=== PATIENT | female | born 1975 | race Two or more races ===

== ENCOUNTER 2018-12-30 20:35 | Emergency (ER) | payer SELFPAY ==
[~2018-12-30] VITALS: Ht 152.4 cm; Wt 59.0 kg
--- NOTE | 2018-12-30 20:48 | PHYS DOC ---
Adult General Chief Complaint Chief Complaint: ABDOMINAL PAIN HPI HPI Patient is a 43 year old [female] who presents with [right lower quadrant abdominal pain. Patient reports she has had this pain as an aching for the last week, reports over the last 8 has gotten worse. Reports pain has seemed to go into her back. Patient states the pain started. Medical: Has moved more to right lower quadrant. Does report she has had a fever today. States she has had decreased appetite the last few days as well. Does report she is have a bit of discomfort while urinating, denies any vaginal discharge, denies any vaginal bleeding. States she has been a little nauseous, however denies any nausea today. Denies any vomiting. Denies any diarrhea. Last bowel movement yesterday. Denies any abnormal bowel changes] Review of Systems Review of Systems Constitutional: Reports fever denies chills [] Eyes: Denies change in visual acuity, redness, or eye pain [] HENT: Denies nasal congestion or sore throat [] Respiratory: Denies cough or shortness of breath [] Cardiovascular: No additional information not addressed in HPI [] GI: Reports abdominal pain, nausea, denies vomiting, bloody stools or diarrhea [] : Reports painful urination the past day [] Musculoskeletal: Denies back pain or joint pain [] Integument: Denies rash or skin lesions [] Neurologic: Denies headache, focal weakness or sensory changes [] Endocrine: Denies polyuria or polydipsia [] All other systems were reviewed and found to be within normal limits, except as documented in this note. Current Medications Current Medications Current Medications Medications (Trade) Dose Ordered Sig/Julianna Start Time Stop Time Status Last Admin Dose Admin Iohexol (Omnipaque 300 Mg/ml) 75 ml 1X ONCE 12/30/18 21:30 12/30/18 21:32 DC 12/30/18 21:38 75 ML Morphine Sulfate (Morphine Sulfate) 2 mg 1X ONCE 12/30/18 21:00 12/30/18 21:16 DC 12/30/18 21:22 2 MG Ondansetron HCl (Zofran) 4 mg 1X ONCE 12/30/18 21:00 12/30/18 21:16 DC 12/30/18 21:22 4 MG Sodium Chloride 1,000 ml @ 1,000 mls/hr 1X ONCE 12/30/18 21:00 12/30/18 21:59 DC 12/30/18 21:22 1,000 MLS/HR Allergies Allergies Allergies Coded Allergies Type Severity Reaction Last Updated Verified No Known Drug Allergies 12/30/18 No Physical Exam Physical Exam Constitutional: Well developed, well nourished, no acute distress, non-toxic appearance. Febrile[] HENT: Normocephalic, atraumatic, bilateral external ears normal, oropharynx moist, no oral exudates, nose normal. [] Eyes: PERRLA, EOMI, conjunctiva normal, no discharge. [] Neck: Normal range of motion, no tenderness, supple, no stridor. [] Cardiovascular:Heart rate regular rhythm, mildly tachycardic, no murmur [] Lungs & Thorax: Bilateral breath sounds clear to auscultation [] Abdomen: Bowel sounds normal, soft, no masses, no pulsatile masses. Positive Mc Burneys point + rebound tenderness to LLQ. Positive Psoas.[] Skin: Warm, dry, no erythema, no rash. [] Back: No tenderness, no CVA tenderness. [] Extremities: No tenderness, no cyanosis, no clubbing, ROM intact, no edema. [] Neurologic: Alert and oriented X 3, normal motor function, normal sensory function, no focal deficits noted. [] Psychologic: Affect normal, judgement normal, mood normal. [] Current Patient Data Vital Signs Vital Signs Date Time Temp Pulse Resp B/P (MAP) Pulse Ox O2 Delivery O2 Flow Rate FiO2 12/30/18 21:22 18 100 Room Air 12/30/18 20:45 100.0 109 125/65 (85) 100.0 Lab Values Laboratory Tests Test 12/30/18 20:44 12/30/18 20:46 12/30/18 20:57 Urine Collection Type Unknown Urine Color Straw Urine Clarity Clear Urine pH 7.0 Urine Specific [place] 1.010 Urine Protein Negative mg/dL (NEG-TRACE) Urine Glucose (UA) Negative mg/dL (NEG) Urine Ketones (Stick) Negative mg/dL (NEG) Urine Blood Moderate (NEG) Urine Nitrite Negative (NEG) Urine Bilirubin Negative (NEG) Urine Urobilinogen Dipstick 1.0 mg/dL (0.2 mg/dL) Urine Leukocyte Esterase Large (NEG) Urine RBC 1-2 /HPF (0-2) Urine WBC 11-20 /HPF (0-4) Urine Squamous Epithelial Cells Mod /LPF Urine Bacteria Many /HPF (0-FEW) POC Urine HCG, Qualitative Hcg negative (Negative) White Blood Count 11.1 x10^3/uL (4.0-11.0) H Red Blood Count 4.84 x10^6/uL (3.50-5.40) Hemoglobin 13.1 g/dL (12.0-15.5) Hematocrit 39.7 % (36.0-47.0) Mean Corpuscular Volume 82 fL (79-100) Mean Corpuscular Hemoglobin 27 pg (25-35) Mean Corpuscular Hemoglobin Concent 33 g/dL (31-37) Red Cell Distribution Width 13.5 % (11.5-14.5) Platelet Count 263 x10^3/uL (140-400) Neutrophils (%) (Auto) 84 % (31-73) H Lymphocytes (%) (Auto) 9 % (24-48) L Monocytes (%) (Auto) 6 % (0-9) Eosinophils (%) (Auto) 0 % (0-3) Basophils (%) (Auto) 0 % (0-3) Neutrophils # (Auto) 9.3 x10^3/uL (1.8-7.7) H Lymphocytes # (Auto) 1.0 x10^3/uL (1.0-4.8) Monocytes # (Auto) 0.7 x10^3/uL (0.0-1.1) Eosinophils # (Auto) 0.0 x10^3/uL (0.0-0.7) Basophils # (Auto) 0.0 x10^3/uL (0.0-0.2) Sodium Level 139 mmol/L (136-145) Potassium Level 3.3 mmol/L (3.5-5.1) L Chloride Level 101 mmol/L (98-107) Carbon Dioxide Level 26 mmol/L (21-32) Anion Gap 12 (6-14) Blood Urea Nitrogen 10 mg/dL (7-20) Creatinine 0.9 mg/dL (0.6-1.0) Estimated GFR (Cockcroft-Gault) 68.7 BUN/Creatinine Ratio 11 (6-20) Glucose Level 97 mg/dL (70-99) Lactic Acid Level 0.8 mmol/L (0.4-2.0) Calcium Level 9.1 mg/dL (8.5-10.1) Total Bilirubin 0.6 mg/dL (0.2-1.0) Aspartate Amino Transferase (AST) 13 U/L (15-37) L Alanine Aminotransferase (ALT) 11 U/L (14-59) L Alkaline Phosphatase 94 U/L (46-116) Total Protein 8.1 g/dL (6.4-8.2) Albumin 3.9 g/dL (3.4-5.0) Albumin/Globulin Ratio 0.9 (1.0-1.7) L Laboratory Tests 12/30/18 20:57 Laboratory Tests 12/30/18 20:57 EKG EKG [] Radiology/Procedures Radiology/Procedures IMPRESSION: 1. Indeterminate low-density mass involving the pancreatic head/uncinate process. Although this could represent a benign cystic lesion or old pseudocyst, cystic neoplasm cannot be excluded. MRI could better evaluate. 2. There are vague low-density nodules at the lower pole and upper pole right kidney with some mild inflammatory stranding and thickening along the proximal right ureter. This is also of uncertain etiology and could be related to pyelonephritis. A renal mass cannot be excluded. This could also be evaluated on pre and postcontrast MR imaging. 3. Otherwise no acute findings. Normal appendix. 4. Mild wall thickening of the urinary bladder. Consider acute or chronic cystitis. Electronically signed by: Rohan Hoyt MD (12/30/2018 9:53 P[] Course & Med Decision Making Course & Med Decision Making Pertinent Labs and Imaging studies reviewed. (See chart for details) [Discussed lab and imaging results with suggestion for further imaging of pancreatic head and right kidney, per imaging results. Discussed no signs of appendicitis today. Discussed signs of UTI. Will administer antibiotics. patient to follow up with PCP for further imaging. Patient with no further questions or concerns at this time. ] Dragon Disclaimer Dragon Disclaimer This electronic medical record was generated, in whole or in part, using a voice recognition dictation system. Departure Departure Impression: Primary Impression: Urinary tract infection Disposition: 01 HOME, SELF-CARE Condition: STABLE Patient Instructions: Urinary Tract Infection Additional Instructions: Edison hablemos, tenga josselin infeccion orinario. En los escan, tambien encuentra unos quiste, un que esta en el pancreata y otro en rinon derecha. Ellos recomena que tenga josselin MRI para identificar mas que estan. Eso tenga que hablar con toussaint medico primario para evaluar. Janey el antibiotico para infeccion Janey agua Janey ibuprofen y paracetamol para dolor. Y el otro medicina, para 2 kuo, el Phenpyridione es para el dolor. eso sera lo que cambia color de toussaint orina [facility] Phenazopyridine Hcl (PHENAZOPYRIDINE HCL) 100 Mg Tablet 1 TAB PO TID, #6 TAB Prov: LILIANA PEREYRA E [employer] 12/30/18 Nitrofurantoin Monohyd/M-Cryst (MACROBID 100 MG CAPSULE) 100 Mg Capsule 1 CAP PO BID, #14 CAP Prov: LILIANA PEREYRA E [employer] 12/30/18 Problem Qualifiers Primary Impression: Urinary tract infection Urinary tract infection type: acute cystitis Hematuria presence: with hematuria Qualified Codes: N30.01 - Acute cystitis with hematuria LILIANA PEREYRA E [employer] Dec 30, 2018 20:48
[2018-12-30] MEDS ORDERED: MORPHINE SULFATE 2 MG/ML VIAL. IV ONE (21:00)
[2018-12-30] MEDS ORDERED: IV NORMAL SALINE 1000ML BAG 1,000 ML IV ONE (21:00)
[2018-12-30] MEDS ORDERED: ONDANSETRON PF 4 MG/2 ML VIAL. IV ONE (21:00)
[2018-12-30 21:09] LABS: BASO % 0 % (0-3); EOS % 0 % (0-3); HEMATOCRIT 39.7 % (36.0-47.0); HEMOGLOBIN 13.1 g/dL (12.0-15.5); LYMPH % 9 % (24-48); MEAN CORPUSCULAR HEMOGLOBIN 27 pg (25-35); MEAN CORPUSCULAR HGB CONC 33 g/dL (31-37); MEAN CORPUSCULAR VOLUME 82 fL (79-100); MONO # 0.7 x10^3/uL (0.0-1.1); MONO % 6 % (0-9); NEUT # 9.3 x10^3/uL (1.8-7.7); NEUT % 84 % (31-73); PLATELET COUNT 263 x10^3/uL (140-400); RED BLOOD COUNT 4.84 x10^6/uL (3.50-5.40); RED CELL DISTRIBUTION WIDTH 13.5 % (11.5-14.5); WHITE BLOOD COUNT 11.1 x10^3/uL (4.0-11.0)
[2018-12-30 21:18] LABS: CALCIUM 9.1 mg/dL (8.5-10.1); CREATININE 0.9 mg/dL (0.6-1.0); GFR 68.7; POTASSIUM 3.3 mmol/L (3.5-5.1)
[2018-12-30 21:24] LABS: ALBUMIN 3.9 g/dL (3.4-5.0); ALBUMIN/GLOBULIN RATIO 0.9 (1.0-1.7); TOTAL BILIRUBIN 0.6 mg/dL (0.2-1.0); TOTAL PROTEIN 8.1 g/dL (6.4-8.2)
[2018-12-30] MEDS ORDERED: IOHEXOL 300 MG/ML 100ML VIAL. IV ONE (21:30)
--- NOTE | 2018-12-30 21:56 | RAD ---
CT abdomen pelvis with contrast dated 12/30/2018. No comparison available. Clinical indication: Right lower quadrant pain and fever. TECHNIQUE: Per contiguous axial imaging of the and pelvis performed following the intravenous administration of 75 cc Omnipaque 300. One or more of the following individualized dose reduction techniques were utilized for this examination: 1. Automated exposure control 2. Adjustment of the mA and/or kV according to patient size 3. Use of iterative reconstruction technique FINDINGS: Limited images of the lung bases are clear. Heart size within normal limits. No pleural or pericardial effusion. Liver is homogeneous. No apparent mass. Biliary tree normal in caliber. Gallbladder surgically absent. Spleen is normal in size. There is a low-density mass at the pancreatic head/uncinate process measuring 2.3 cm in size (image 30). No significant biliary ductal dilatation or pancreatic duct dilatation. No inflammatory changes surrounding the gland. Adrenal glands and kidneys are unremarkable. There is some mild urothelial thickening involving the right ureter with questionable mild inflammatory stranding in the periureteral fat. No hydronephrosis. No calcific stone. There is a vague low-density nodule at the lower pole right kidney that measures about 1.1 cm in size and Hounsfield value of 99. There is also some vague low density at the upper pole right kidney. Left kidney and left ureter are unremarkable. Unopacified GI tract normal in caliber and contour. No focal bowel wall thickening. No inflammatory stranding in the mesentery. The appendix is normal in caliber. No ascites or lymphadenopathy. Appendix normal in caliber. Images of pelvis show nondistended urinary bladder. There is diffuse bladder wall thickening. Uterus and adnexa are unremarkable. No free fluid or lymphadenopathy. Bone windows show no acute findings. IMPRESSION: 1. Indeterminate low-density mass involving the pancreatic head/uncinate process. Although this could represent a benign cystic lesion or old pseudocyst, cystic neoplasm cannot be excluded. MRI could better evaluate. 2. There are vague low-density nodules at the lower pole and upper pole right kidney with some mild inflammatory stranding and thickening along the proximal right ureter. This is also of uncertain etiology and could be related to pyelonephritis. A renal mass cannot be excluded. This could also be evaluated on pre and postcontrast MR imaging. 3. Otherwise no acute findings. Normal appendix. 4. Mild wall thickening of the urinary bladder. Consider acute or chronic cystitis. Electronically signed by: Rohan Hoyt MD (12/30/2018 9:53 PM) [facility]
[2018-12-30 22:05] LABS: BILIRUBIN,URINE NEGATIVE (NEG); CLARITY,URINE CLEAR; NITRITE,URINE NEGATIVE (NEG); PROTEIN,URINE NEGATIVE (NEG-TRACE)
[2018-12-30 22:10] LABS: COLOR,URINE STRAW
[2018-12-30 22:12] LABS: BACTERIA,URINE MANY /HPF (0-FEW); SQUAMOUS EPITHELIAL CELL,UR MOD /LPF
[2018-12-30] MEDS ORDERED: NITR100C62 PO (22:40)
[2018-12-30] MEDS ORDERED: PHEN-443 PO (22:50)
[2018-12-30 23:08] VITALS: BP 112/60
== END 2018-12-30 23:10 | disposition home or self-care (01) ==
LOC: ER 20:35
DX: N30.01 Acute cystitis with hematuria (principal)
CPT/HCPCS: 36415; 74177; 80053; 81001; 81025; 83605; 85025; 87040; 87086; 96374; 96375; 99285; J2270; J2405; J7030; Q9967